=== PATIENT | male | born 1945 | race African-American/Black ===

== ENCOUNTER 2018-08-02 22:17 | Inpatient (IN) ==
[2018-08-02 22:59] LABS: BASO# 0.03 X1000 (0.0-0.2); BASO% 0.4 % (0.0-0.8); EOS# 0.26 X1000 (0.0-0.7); EOS% 3.9 % (0.0-10.0); HEMATOCRIT 43.6 % (42.0-52.0); HEMOGLOBIN 14.4 g/dL (14.0-18.0); IMM GRAN# 0.02 X1000 (0.0-0.04); IMM GRAN% 0.3 % (0.0-0.5); LYMPH# 1.61 X1000 (1.2-3.4); LYMPH% 23.9 % (20.5-51.1); MCH 27.9 PG (27-31); MCV 84.5 FL (81-99); MONO# 0.74 X1000 (0.11-0.59); MPV 10.9 FL (7.4-10.4); NEUT# 4.08 X1000 (1.4-6.5); NEUT% 60.5 % (42.2-75.2); PLT 175 X1000 (130-400); RBC 5.16 XMIL (4.7-6.1); RDW 13.8 % (11.5-14.5); WBC 6.74 X1000 (4.8-10.8)
[2018-08-02 23:03] LABS: BE -0.6 mmoll (-3.0-3.0); BLOOD TYPE ARTERIAL; HCO3-(ACT) 24.4 mmoll (20.0-26.0); METHB 1.2 % (0.0-1.5); O2(CT) 18.8 mL/dL (15.0-23.0); O2HB 93.9 % (95.0-99.0); PCO2(98.6) 43 mmHg (35-45); PO2(98.6) 72 mmHg (60-100); SAMPLE BLOOD; SAO2 97.6 % (95.0-100.0); THB 14.2 g/dL (11.5-17.4); pH(98.6) 7.37 (7.35-7.45)
[2018-08-02 23:04] LABS: ALLEN TEST NO; MODALITY ROOM AIR
[2018-08-02 23:14] LABS: INR 1.03
[2018-08-02 23:15] LABS: PTT 25.6 Seconds (22.3-41.8)
[2018-08-02 23:19] LABS: ALBUMIN 3.9 g/dL (3.5-5.0); CALCIUM 8.3 mg/dL (8.8-10.2); CREATININE 1.4 mg/dL (0.7-1.2); TOTAL BILIRUBIN 0.2 mg/dL (0.20-1.00); TOTAL PROTEIN 7.5 g/dL (6.3-8.3)
[2018-08-02 23:24] LABS: BILIRUBIN URINE NEGATIVE (NEGATIVE); BLOOD URINE 1+ (NEGATIVE); CLARITY CLEAR (CLEAR); COLOR YELLOW; GLUCOSE URINE NEGATIVE (NEGATIVE); KETONE URINE NEGATIVE (NEGATIVE); LEUKOCYTES URINE NEGATIVE (NEGATIVE); NITRITE URINE NEGATIVE (NEGATIVE); PROTEIN URINE 2+(100 mg/dL) mg/dL (NEGATIVE); UROBILINOGEN URINE NORMAL
[2018-08-02] MEDS ORDERED: ATIVAN IV ONE (23:29)
[2018-08-02 23:31] LABS: URINE BACTERIA 3+ /HFP; URINE EPITHELIAL CELLS <10 /HPF (<10); URINE RBC <10 /HPF (<10); URINE SOURCE CATH; URINE WBC <10 /HPF (<10)
[2018-08-02 23:40] LABS: CK INDEX 0.5 (0.0-2.5); CK-MB 8.15 ng/mL (0.0-5.0)
[2018-08-02] MEDS ORDERED: ZOSYN 4.5 GM in NS 100 ML IV ONE (23:51)
[2018-08-02] MEDS ORDERED: ZOSYN ONE (23:52)
[2018-08-02] MEDS ORDERED: NS 100 ML ONE (23:53)
--- NOTE | 2018-08-03 00:29 | EKG Report ---
Test Performed on : 08/02/2018 10:46:47 PM Test Reason : AMS Blood Pressure : / mmHG Vent. Rate : 082 BPM Atrial Rate : 082 BPM P-R Int : 150 ms QRS Dur : 096 ms QT Int : 364 ms P-R-T Axes : 058 044 132 degrees QTc Int : 425 ms Normal sinus rhythm. Septal infarct , age undetermined T wave abnormality, consider lateral ischemia Abnormal ECG When compared with ECG of 20-MAR-2018 16:34, No significant change was found Unconfirmed Result
--- NOTE | 2018-08-03 02:33 | PROVIDER DOCUMENTATION ---
This chart was entered by Phoebe Carlin Scribe, acting as scribe for Radha Bedolla MD. HPI-General Adult - General Chief Complaint: Altered Mental Status Stated Complaint: AMS Time Seen by Provider: 08/02/18 22:43 Source: patient, family, EMS Allergies/Adverse Reactions: Patient Allergies Allergy/AdvReac Type Severity Reaction Status Date / Time No Known Allergies Allergy Verified 05/11/17 15:46 Home Medications: Home Medication List Medication Instructions Recorded Confirmed Last Taken Type Potassium Chloride [Klor-Con M20] 20 meq PO BID 09/03/12 05/11/17 03/07/17 07:00 History Pravastatin Sodium 20 mg PO HS 09/03/12 05/11/17 03/07/17 18:00 History Tamsulosin [Flomax] 0.4 mg PO DAILY 09/03/12 05/11/17 03/07/17 07:00 History Aspirin 325 mg PO DAILY 05/14/17 05/14/17 Unknown History Niacin [Niaspan] 1,000 mg PO QHS 05/14/17 05/14/17 Unknown History Albuterol 2.5MG/Ipratrop 0.5MG 3 ml INH Q2H PRN PRN neb 05/18/17 Unknown Rx [Duoneb (A & A)] Albuterol 2.5MG/Ipratrop 0.5MG 3 ml INH RTQ4H neb 05/18/17 Unknown Rx [Duoneb (A & A)] Amlodipine [Norvasc] 5 mg PO BID tablet 05/18/17 Unknown Rx Cefepime HCl/Dextrose, Iso-Osm 2 gm IV Q12H #1 froz.piggy 05/18/17 Unknown Rx [Cefepime 2 gm Injection] Furosemide [Lasix] 40 mg IV BID vial 05/18/17 Unknown Rx Insulin Glargine [Lantus] 20 unit SUBQ BID insuln.pen 05/18/17 Unknown Rx LISINOpril [Prinivil] 10 mg PO BID tablet 05/18/17 Unknown Rx Promethazine [Phenergan] 12.5 mg IV Q6H PRN PRN ampul 05/18/17 Unknown Rx Vancomycin/0.9% Sod Chloride 2 gm IV DAILY #1 ml 05/18/17 Unknown Rx [Vancomycin-Ns 2 G/500 ml] Mag Hydrox/Al Hydrox/Simeth 710 ml PO PRN PRN #1 oral.susp 03/20/18 Unknown Rx [Mylanta Double-Strength Liq] - History of Present Illness -Gen Adult Nature of Presenting Problems: 73 y/o male presents to ED with AMS onset just prior to arrival. Family of pt reports FSBS of 70 before EMS arrival and that they found him in the floor altered. EMS states they could not get a blood pressure en route to ED. Pt denies pain. Pt is oriented x1. Location of Pain/Injury: reports: none Pain Radiation: reports: no radiation Quality of Pain: reports: none Severity: reports: moderate Onset/Duration: reports: just prior to arrival Timing: reports: still present Context/Activities at Onset: reports: other (found altered in floor) Modifying Factors: improves with: nothing Associated Symptoms: reports: other (AMS) Similar Symptoms Previously?: No Recently seen or treated by another doctor?: No Review of Systems - Adult - REVIEW OF SYSTEMS - ADULT Constitutional: reports: other (AMS). denies: chills, fever Eyes: reports: no symptoms reported Ears, Nose, Mouth & Throat: reports: no symptoms reported Cardiovascular: denies: chest pain, palpitations Respiratory: denies: cough, shortness of breath Gastrointestinal: denies: abdominal pain, diarrhea, nausea, vomiting Genitourinary: reports: no symptoms reported Musculoskeletal: denies: back pain, joint pain Integumentary: reports: no symptoms reported Neurological: reports: other (AMS). denies: dizziness/vertigo, seizure Psychiatric: reports: no symptoms reported Endocrine: reports: no symptoms reported Hematologic/Lymphatic: reports: no symptoms reported Allergic/Immunologic: reports: no symptoms reported All Other Systems: Reviewed and Negative Past History - Adult - PAST MEDICAL HISTORY-ADULT Review of Records: reports: Old Records Reviewed, Nursing Assessment Review, Medications Reviewed Major Childhood Illnesses: reports: denies history Cardiovascular: reports: cardiac disease, CAD, HTN, hyperlipidemia, other (stent) Respiratory: reports: asthma Gastrointestinal: reports: cholelithiasis Obstetrical/Gynecological: reports: denies history Genitourinary: reports: cancer (hx of bladder), kidney disease, other (enlarged prostate) Musculoskeletal: reports: denies history Neurological: reports: denies history Psychiatric: reports: denies history Endocrine/Immune: reports: Diabetes Other Conditions: reports: denies history - PRIOR SURGERIES/PROCEDURES Surgical/Procedure History: reports: cholecystectomy, cardiac stent, other (bladder; heart) - IMMUNIZATION STATUS Childhood Immunizations: See Nurse Assessment Flu Vaccine: See Nurse Assessment - FAMILY HISTORY Family History: reviewed, not pertinent - SOCIAL HISTORY Smoking: quit greater than 1 year Substance Use: none/never Alcohol Use Frequency: never Living Situation: family Physical Exam-General - PHYSICAL EXAM-ADULT Initial Vital Signs Reviewed: Yes - CONSTITUTIONAL General Appearance: other (altered, but able to follow commands; oriented x1) - EYES Eyes: PERRL/EOMI, pink conjunctivae, other (R 2 mm pupil; L cataract) - HEAD, EARS, NOSE, MOUTH & THROAT HENMT: normocephalic/atraumatic, moist mucous membranes - NECK Neck: non-tender, full range of motion - RESPIRATORY Respiratory: chest non-tender, lungs clear, normal breath sounds - CARDIOVASCULAR Cardiovascular: normal peripheral pulses, regular rate, rhythm - GASTROINTESTINAL (ABDOMEN) Abdominal Exam: normal bowel sounds, non tender, soft - MUSCULOSKELETAL Back Exam: normal inspection, no CVA tenderness Extremity: normal range of motion, non-tender, pedal edema (bilateral) - SKIN Integumentary: normal color, warm/dry - NEUROLOGIC Neurologic: grossly normal, facial droop (L sided), other (altered, but able to follow commands; oriented x1) - PSYCHIATRIC Psych/Mental Status: other (altered, but able to follow commands; oriented x1) Progress - PLAN OF CARE/RESULTS Progress/Plan/Lab Results: Vital Signs - 8 hr 08/02/18 22:19 08/02/18 22:36 08/02/18 22:37 Temperature 94.9 F L 94.9 F L Pulse Rate 77 77 Respiratory Rate 20 Blood Pressure 156/80 157/77 O2 Sat by Pulse Oximetry 97 97 08/02/18 23:38 Temperature 95.9 F L Pulse Rate 81 Respiratory Rate 19 Blood Pressure 140/53 O2 Sat by Pulse Oximetry 98 Laboratory Results - last 24 hr 08/02/18 08/02/18 08/02/18 22:26 22:26 22:26 WBC 6.74 RBC 5.16 Hgb 14.4 Hct 43.6 MCV 84.5 MCH 27.9 MCHC 33.0 RDW Std Deviation 13.8 Plt Count 175 MPV 10.9 H Immature Gran % (Auto) 0.3 Neut % (Auto) 60.5 Lymph % (Auto) 23.9 Toole % (Auto) 11.0 H Eos % (Auto) 3.9 Baso % (Auto) 0.4 Immature Gran # (Auto) 0.02 Neut # (Auto) 4.08 Lymph # (Auto) 1.61 Toole # (Auto) 0.74 H Eos # (Auto) 0.26 Baso # (Auto) 0.03 PT INR PTT (Actin FS) Specimen Type Sample Site pH pCO2 pO2 HCO3 Base Excess Oxyhemoglobin ABG O2 Sat (Calculated) ABG O2 Saturation ABG Carboxyhemoglobin ABG Methemoglobin Ulices Test A-a O2 Difference Total Hemoglobin Lactate Blood Gas Modality FiO2 % Sodium 142 Potassium 4.0 Chloride 106 Carbon Dioxide 23 L Anion Gap 14 BUN 11 Creatinine 1.4 H Estimated GFR/1.73 m2 50 BUN/Creatinine Ratio 8 Glucose 48 L Calculated Osmolality 280 Calcium 8.3 L Total Bilirubin 0.20 AST 29 ALT 11 Alkaline Phosphatase 88 Creatine Kinase 1668 H Creatine Kinase Index 0.5 CK-MB (CK-2) 8.15 H Troponin T Total Protein 7.5 Albumin 3.9 Globulin 4.0 Albumin/Globulin Ratio 1.0 Plasma Lactate Urine Source Urine Color Urine Clarity Urine Turbidity Urine pH Ur Specific Ayr Urine Protein Ur Glucose (Stick) Urine Ketones Ur Ketones (Stick) Urine Blood Urine Nitrite Urine Bilirubin Urine Urobilinogen Urobilinogen Dipstick Urine Leukocytes Urine WBC (Auto) Urine RBC (Auto) U Epithel Cells (Auto) Urine Bacteria (Auto) Urine Microscopic RBC Urine WBC Urine Microscopic WBC Ur Epithelial Cells Urine Crystals Small Round Cells Urine Bacteria Urine Casts Urine Trichomonas Urine Yeast Urine Glucose Acetone Level NEGATIVE 08/02/18 08/02/18 08/02/18 22:26 22:26 22:32 WBC RBC Hgb Hct MCV MCH MCHC RDW Std Deviation Plt Count MPV Immature Gran % (Auto) Neut % (Auto) Lymph % (Auto) Toole % (Auto) Eos % (Auto) Baso % (Auto) Immature Gran # (Auto) Neut # (Auto) Lymph # (Auto) Toole # (Auto) Eos # (Auto) Baso # (Auto) PT 14.0 INR 1.03 PTT (Actin FS) 25.6 Specimen Type Sample Site pH pCO2 pO2 HCO3 Base Excess Oxyhemoglobin ABG O2 Sat (Calculated) ABG O2 Saturation ABG Carboxyhemoglobin ABG Methemoglobin Ulices Test A-a O2 Difference Total Hemoglobin Lactate Blood Gas Modality FiO2 % Sodium Potassium Chloride Carbon Dioxide Anion Gap BUN Creatinine Estimated GFR/1.73 m2 BUN/Creatinine Ratio Glucose Calculated Osmolality Calcium Total Bilirubin AST ALT Alkaline Phosphatase Creatine Kinase Creatine Kinase Index CK-MB (CK-2) Troponin T 0.011 Total Protein Albumin Globulin Albumin/Globulin Ratio Plasma Lactate Urine Source CATH Urine Color YELLOW Urine Clarity CLEAR Urine Turbidity Cancelled Urine pH 5.0 Ur Specific Ayr 1.020 Urine Protein 2+(100 mg/dL) A Ur Glucose (Stick) Cancelled Urine Ketones NEGATIVE Ur Ketones (Stick) Cancelled Urine Blood 1+ A Urine Nitrite NEGATIVE Urine Bilirubin NEGATIVE Urine Urobilinogen NORMAL Urobilinogen Dipstick Cancelled Urine Leukocytes Cancelled Urine WBC (Auto) Cancelled Urine RBC (Auto) Cancelled U Epithel Cells (Auto) Cancelled Urine Bacteria (Auto) Cancelled Urine Microscopic RBC <10 Urine WBC NEGATIVE Urine Microscopic WBC <10 Ur Epithelial Cells <10 Urine Crystals Cancelled Small Round Cells Cancelled Urine Bacteria 3+ Urine Casts Cancelled Urine Trichomonas Cancelled Urine Yeast Cancelled Urine Glucose NEGATIVE Acetone Level 08/02/18 08/02/18 22:48 23:06 WBC RBC Hgb Hct MCV MCH MCHC RDW Std Deviation Plt Count MPV Immature Gran % (Auto) Neut % (Auto) Lymph % (Auto) Toole % (Auto) Eos % (Auto) Baso % (Auto) Immature Gran # (Auto) Neut # (Auto) Lymph # (Auto) Toole # (Auto) Eos # (Auto) Baso # (Auto) PT INR PTT (Actin FS) Specimen Type ARTERIAL Sample Site R BRACHIAL pH 7.37 pCO2 43 pO2 72 HCO3 24.4 Base Excess -0.6 Oxyhemoglobin 93.9 L ABG O2 Sat (Calculated) 18.8 ABG O2 Saturation 97.6 ABG Carboxyhemoglobin 2.60 H ABG Methemoglobin 1.2 Ulices Test NO A-a O2 Difference 24.0 Total Hemoglobin 14.2 Lactate 1.20 Blood Gas Modality ROOM AIR FiO2 % 21.0 Sodium Potassium Chloride Carbon Dioxide Anion Gap BUN Creatinine Estimated GFR/1.73 m2 BUN/Creatinine Ratio Glucose Calculated Osmolality Calcium Total Bilirubin AST ALT Alkaline Phosphatase Creatine Kinase Creatine Kinase Index CK-MB (CK-2) Troponin T Total Protein Albumin Globulin Albumin/Globulin Ratio Plasma Lactate 1.5 Urine Source Urine Color Urine Clarity Urine Turbidity Urine pH Ur Specific [place]yr Urine Protein Ur Glucose (Stick) Urine Ketones Ur Ketones (Stick) Urine Blood Urine Nitrite Urine Bilirubin Urine Urobilinogen Urobilinogen Dipstick Urine Leukocytes Urine WBC (Auto) Urine RBC (Auto) U Epithel Cells (Auto) Urine Bacteria (Auto) Urine Microscopic RBC Urine WBC Urine Microscopic WBC Ur Epithelial Cells Urine Crystals Small Round Cells Urine Bacteria Urine Casts Urine Trichomonas Urine Yeast Urine Glucose Acetone Level Orders Category Date Time Status Cardiac Monitoring DIRECTED Care 08/02/18 22:43 Active Melendez Cath Insertion ORDERED Care 08/02/18 22:45 Active IV Insertion ORDERED Care 08/02/18 22:43 Completed Notify MD of + Sepsis Screen NOW Care 08/02/18 22:43 Active CHEST-1 VIEW [RAD] Stat Exams 08/02/18 22:[address] HEAD W/O CONTRAST [CT] Stat Exams 08/02/18 22:45 Ordered ABG [RESP] Routine Lab 08/02/18 22:48 Completed BLOOD CULTURE [BLDCUL] Stat Lab 08/02/18 23:08 Ordered BNP [PRO B-NATRIURETIC PEPTIDE] Stat Lab 08/02/18 23:55 Ordered CBC WITH DIFF [HEME] Stat Lab 08/02/18 22:26 Completed CK PROFILE [SP CHEM] Stat Lab 08/02/18 22:26 Completed COMPREHENSIVE METABOLIC PANEL [CHEM] Stat Lab 08/02/18 22:26 Completed Ketone [ACETONE SERUM] [CHEM] Stat Lab 08/02/18 22:26 Completed LACTATE, PLASMA [CHEM] Q3H Lab 08/02/18 23:06 Completed PROTIME WITH INR [COAG] Stat Lab 08/02/18 22:26 Completed PTT [COAG] Stat Lab 08/02/18 22:26 Completed TROPONIN T Stat Lab 08/02/18 22:26 Completed UA NIMS W/REFLEX CULT PL [URINALYSIS] Stat Lab 08/02/18 22:32 Completed URINE CULTURE [RM] Routine Lab 08/02/18 23:31 Ordered 0.9% Sodium Chloride Inj [Ns] 100 ml Med 08/02/18 23:53 Discontinued .ROUTE As directed Lorazepam [Ativan] Med 08/02/18 23:29 Discontinued 1 mg IV NOW ONE Piperacillin/Tazobactam [Zosyn] Med 08/02/18 23:52 Discontinued 4.5 gm .ROUTE .STK-MED ONE Piperacillin/Tazobactam [Zosyn] 4.5 gm Med 08/02/18 23:51 Active 0.9% Sodium Chloride Inj [Ns] 100 ml IV NOW Oxygen Device Stat Oth 08/02/18 22:43 Active labs and imaging reviewed. pt more alert and awake and coherent. denies any pain or SOB. pt has elevated CPK, ?seizure. d/w Dr Rodriguez, will admit for observation and further evaluation. Result Diagrams: 08/02/18 22:26 08/02/18 22:26 - EKG 1 Time of EKG reading by physician:: 22:46 EKG Read and Signed by:: Radha Bedolla EKG Interpretation (*Must complete 3 of following elements*): Abnormal Rate: 82 Rhythm: NSR [place]: normal QRS: other (septal infarct) MO Interval: normal ST Wave: non-specific ST changes (consider lateral ischemia) - XRAY 1 XRAY Study: Chest Impression: See EMR Report - CT/MRI 1 CT Study: Head Impression: See EMR Report - CONSULTS/PCP/HOSPITALIST Notification #1 *Consult/PCP/Hospitalist*: DR RODRIGUEZ Time Discussed: 03:55 Consult Disposition: Admit Departure - Departure Date of Disposition Decision: 08/03/18 Time of Disposition Decision: 04:51 DIAGNOSIS: Altered mental status, Seizure Disposition: ADMITTED INPATIENT 09 Certified Medical Emergency: Emergent Condition: Stable - Critical Care Note This patient required my direct & personal management of CC.: No Attestation - Physician/ ALEXANDREA Attestation Patient care was provided by Advanced Practice Provider:: No The physician spent face to face time with patient:: Yes Advanced Practice Provider documentation review:: Supervising physician onsite and consulted in the evaluation and care of this patient. The physician did have a face to face encounter with the patient. This chart was documented by the indicated scribe, (Phoebe Carlin Scribe) and accurately reflects the services I performed and decisions made by me, Radha Bedolla MD, as attested by the provider's signature.
[2018-08-03] MEDS ORDERED: NS 1,000 ML IV ONE (03:27)
[2018-08-03] MEDS ORDERED: NS 1,000 ML IV SCH (03:30)
--- NOTE | 2018-08-03 06:11 | Diag Imaging Result Doc PS360 ---
EXAM: CT HEAD W/O CONTRAST HISTORY: AMS TECHNIQUE: CT head without contrast COMPARISON: 05/11/2017 FINDINGS: No parenchymal hemorrhage. No epidural or subdural hematoma. No subarachnoid hemorrhage. There is mild atrophy with chronic microvascular ischemic changes. No mass identified on this noncontrasted exam. No hydrocephalus. No sinus opacification. False left eye. IMPRESSION: 1.No hemorrhage 2.Atrophy of chronic microvascular ischemic changes 3.A preliminary report was given at 12:47 AM This exam was performed using automated exposure control, adjustment of mA or kV according to patient size, and/or use of iterative reconstruction technique. Electronically signed by Herman Molina 08/03/2018 6:09 AM
--- NOTE | 2018-08-03 06:19 | Diag Imaging Result Doc PS360 ---
EXAM: CHEST-1 VIEW HISTORY: AMS TECHNIQUE: Chest single view COMPARISON: 03/20/2018 FINDINGS: The lungs are well expanded. The heart is not enlarged. The vessels are not distended. There are no infiltrates. No effusion identified. There is upper mediastinal prominence and the trachea is deviated to the right. The trachea may be narrowed. CT from 03/13/2018 demonstrated thyromegaly and tracheal deviation. IMPRESSION: Enlarged thyroid which may have even increased in size since the prior CT with deviation of the trachea and possibly tracheal narrowing. Electronically signed by Herman Molina 08/03/2018 6:17 AM
[2018-08-03] MEDS: ASPIRIN PO SCH (09:36)
[2018-08-03] MEDS: PRINIVIL PO SCH ×2 (09:36→20:15)
[2018-08-03] MEDS: LASIX IV SCH ×2 (09:36→20:16)
[2018-08-03] MEDS: KLOR-CON PO SCH ×2 (09:36→20:16)
[2018-08-03] MEDS: NORVASC PO SCH ×2 (09:36→20:15)
[2018-08-03] MEDS: FLOMAX PO SCH (09:36)
[2018-08-03] MEDS: LANTUS INSULIN SUBQ SCH (09:45)
[2018-08-03] MEDS: DUONEB (A & A) INH SCH ×3 (11:20→22:00)
[2018-08-03] MEDS ORDERED: ATIVAN IV ONE (19:28)
[2018-08-03] MEDS: DESYREL PO SCH (21:16)
[2018-08-04] MEDS: DUONEB (A & A) INH SCH ×4 (03:07→21:23)
[2018-08-04] MEDS: LANTUS INSULIN SUBQ SCH (09:00)
[2018-08-04] MEDS: PRINIVIL PO SCH ×2 (09:00→20:06)
[2018-08-04] MEDS: KLOR-CON PO SCH ×2 (09:01→20:05)
[2018-08-04] MEDS: FLOMAX PO SCH (09:01)
[2018-08-04] MEDS: NORVASC PO SCH ×2 (09:01→20:05)
[2018-08-04] MEDS: LASIX IV SCH ×2 (09:01→20:06)
[2018-08-04] MEDS: ASPIRIN PO SCH (09:01)
[2018-08-04] MEDS: DESYREL PO SCH (20:06)
[2018-08-04] MEDS: TESSALON PO PRN (21:27)
[2018-08-05] MEDS: DUONEB (A & A) INH SCH ×3 (03:41→15:17)
[2018-08-05] MEDS: TESSALON PO PRN (06:30)
[2018-08-05 06:48] LABS: BASO# 0.03 X1000 (0.0-0.2); BASO% 0.5 % (0.0-0.8); EOS% 5.1 % (0.0-10.0); HEMATOCRIT 38.8 % (42.0-52.0); HEMOGLOBIN 12.8 g/dL (14.0-18.0); IMM GRAN# 0.01 X1000 (0.0-0.04); IMM GRAN% 0.2 % (0.0-0.5); LYMPH# 1.22 X1000 (1.2-3.4); LYMPH% 20.7 % (20.5-51.1); MCH 28.2 PG (27-31); MCV 85.5 FL (81-99); MONO# 0.72 X1000 (0.11-0.59); MONO% 12.2 % (1.7-9.3); NEUT# 3.61 X1000 (1.4-6.5); NEUT% 61.3 % (42.2-75.2); PLT 145 X1000 (130-400); RBC 4.54 XMIL (4.7-6.1); RDW 13.7 % (11.5-14.5); WBC 5.89 X1000 (4.8-10.8)
[2018-08-05 07:02] LABS: HEMOGLOBIN A1C 7.5 % (4.8-6.0)
[2018-08-05 07:24] LABS: ALBUMIN 3.5 g/dL (3.5-5.0); CALCIUM 8.1 mg/dL (8.8-10.2); CREATININE 1.6 mg/dL (0.7-1.2); POTASSIUM 4.5 mmol/L (3.5-5.1); TOTAL BILIRUBIN 0.2 mg/dL (0.20-1.00)
--- NOTE | 2018-08-05 07:44 | Diag Imaging Result Doc PS360 ---
EXAM: SINUSES GOLDEN VIEW ONLY INDICATION: cough TECHNIQUE: One view COMPARISON: None. FINDINGS: There is a sharply demarcated rounded structure in the right maxillary sinus likely representing a moderate-sized mucus retention cyst. No paranasal sinus air-fluid levels are appreciated. The mastoid air cells are clear. The surrounding bony structures are grossly intact. IMPRESSION: Likely mucus retention cyst in the right maxillary sinus suggesting chronic sinus mucosal disease. Electronically signed by Lorenzo Elder 08/05/2018 7:42 AM
--- NOTE | 2018-08-05 07:48 | Diag Imaging Result Doc PS360 ---
EXAM: CHEST-2 VIEWS INDICATION: cough TECHNIQUE: 2 views COMPARISON: 08/03/2018 FINDINGS: The lungs are grossly clear. There is no discrete pleural fluid collection or pneumothorax. There is tracheal deviation that is stable and related to known thyromegaly as was seen on prior CT. The cardiomediastinal silhouette and central vasculature are grossly unremarkable, otherwise. IMPRESSION: No evidence of acute pathology by plain radiograph. Electronically signed by Lorenzo Eldre 08/05/2018 7:45 AM
[2018-08-05] MEDS: LANTUS INSULIN SUBQ SCH (08:16)
[2018-08-05] MEDS: PRINIVIL PO SCH (08:17)
[2018-08-05] MEDS: ASPIRIN PO SCH (08:17)
[2018-08-05] MEDS: NORVASC PO SCH (08:17)
[2018-08-05] MEDS: LASIX IV SCH (08:17)
[2018-08-05] MEDS: FLOMAX PO SCH (08:17)
[2018-08-05] MEDS: KLOR-CON PO SCH (08:17)
--- NOTE | 2018-08-05 15:09 | Diag Imaging Result Doc PS360 ---
EXAM: CT NECK W/CONTRAST INDICATION: mass deviating trachea TECHNIQUE: This exam was performed using automated exposure control, adjustment of mA or kV according to patient size, and/or use of iterative reconstruction technique. COMPARISON: 05/14/2017 FINDINGS: The salivary glands are unremarkable. The thyroid is enlarged and is extremely heterogeneous. This is stable as compared to the previous study and is most compatible with multinodular goiter. It is causing rightward tracheal deviation and narrowing. The aerodigestive tract is grossly unremarkable, otherwise. This is also stable. There is no evidence of significant cervical lymphadenopathy. There is a large subcutaneous lipoma with internal septations and no definite enhancement posteriorly at the base of the neck on the left. It is essentially stable. IMPRESSION: 1.Very enlarged and extremely heterogeneous thyroid that is essentially stable causing stable tracheal narrowing and rightward tracheal deviation. It is nonspecific but most compatible with multinodular goiter. 2.Large subcutaneous lipoma posteriorly on the left at the base the neck that is essentially stable. Electronically signed by Lorenzo Elder 08/05/2018 3:07 PM
[2018-08-05 16:15] VITALS: BP 142/64
[2018-08-05] MEDS ORDERED: NS 500 ML IV ONE (16:23)
[2018-08-05] MEDS ORDERED: NS 250 ML IV ONE (16:44)
--- NOTE | 2018-09-21 10:21 | HISTORY AND PHYSICAL ---
73-year-old black clinic patient of mine who presented to the emergency room with an altered mental status, brought in by his family. His altered mental status began just prior to his arrival. Family reported after gathering up his blood sugar equipment, his blood sugar was 70 before EMS arrival. They found him on the floor altered, confused. EMS said they could not get a blood pressure. The patient denied pain. He is only oriented x1. He does have a history of diabetes. He is taking Lantus 20 units b.i.d. He also has a background history of hypertension, dyslipidemia and BPH. He has had a previous bladder cancer. After being in the ER for a period of time, he rallied up and got back to his normal self. There is a question of some of these have been going on at home. They thought maybe it was a seizure. 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 In the ER, his CT was negative. His vital signs in the ER revealed a temperature of 94.9 degrees x2, pulse 77, respiratory rate 20, blood pressure 156/80, O2 sat 97% and 98%. He was admitted. ALLERGIES: No known allergies. MEDICATIONS AT HOME: 1. Pravastatin 20. 2. Tamsulosin 0.4. 3. Aspirin 325. 4. Potassium 20 b.i.d. 5. Albuterol p.r.n. 6. Amlodipine 5 b.i.d. 7. Insulin glargine 20 b.i.d. by insulin pen. 8. Lisinopril 10 b.i.d. PAST MEDICAL HISTORY: I have been his physician for a long time. Cardiovascularly, he has coronary artery disease, hypertension, dyslipidemia. He has had a stent placed. He has a history of asthma. He has had cholelithiasis. He has had bladder cancer. He has had enlarged prostate. He has had underlying diabetes. PREVIOUS SURGERIES: Include cholecystectomy, cardiac stent and bladder surgery in reference to his bladder cancer. REVIEW OF SYSTEMS: After he awakened, he denied any chills, fever, significant weight gain or weight loss. No change in his visual acuity denson, vision or appearance to his eyes. Nares patent. Oropharynx negative. Cardiovascular: He denies chest pain, palpitations. No PND or orthopnea. Occasionally has some edema in his legs. Respiratory: He denies any recent cough, shortness of breath, wheezing episodes, phlegm production, upper respiratory, lower respiratory symptoms. Gastrointestinal: He denies any nausea, vomiting, diarrhea, constipation, bloody stools, black stools. Genitourinary: No dysuria, hematuria, or polyuria. No significant change in his stream. Musculoskeletal: He denies any back pain or any significant joint pain. 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 Neurological: He has this altered mental status. He has had it on a couple of occasions in the past. We have attributed it to hypoglycemia. He has had no prolonged neurological deficits. Psychiatric: No issues. Endocrine: He is a diabetic. No history of any thyroid disease. Hematological: He has no clotting or bleeding disorder. No history of anemia. Allergies: He has a history of asthma but no significant hayfever. PHYSICAL EXAMINATION: VITAL SIGNS: At the time of admission, temp was roughly 95 degrees, pulse 77, respiratory rate 20, BP 156/80, O2 sat was 97. HEENT: Head as normocephalic. Eyes were PERRL. EOMs intact. SC clear. Fundi benign Nares patent. Oropharynx negative. NECK: Supple, bounding carotids without thyromegaly, without lymphadenopathy. CHEST: Bilateral breath sounds are clear. CARDIOVASCULAR: Regular rhythm and rate. No murmurs, gallops, clicks or rubs. ABDOMEN: Obese. No hepatosplenomegaly. No CVA tenderness. EXTREMITIES: Negative with no cyanosis, clubbing or edema. NEUROLOGICAL: Symmetric. After he presented, he had been given sugar and his mental status returned to its baseline. I suspect that this was a hypoglycemic episode related to his insulin. He will be admitted for observation. He has already had a CAT scan in the ER that was negative. cc: Carrington Amos MD
--- NOTE | 2018-09-21 13:45 | DISCHARGE SUMMARY ---
ADMISSION DATE: 08/04/2018 DISCHARGE DATE: 08/05/2018 A patient of mine from the office, a 73-year-old black male with a history of diabetes, hypertension, ischemic heart disease, bladder cancer, who presented to the ER with an altered mental status, brought in by his family, with a blood sugar of 54. He is on 20 units of Lantus b.i.d. We monitored throughout the hospital stay. His blood sugars have been fine. He is A1c is 7.5 indicating pretty decent control. TSH was normal. We backed off on his insulin and we will see what happens at home but I suspect that this was all secondary to hypoglycemia and not a true seizure disorder. cc: Carrington Amos MD
--- NOTE | 2018-09-21 14:33 | PROGRESS NOTE ---
DATE: 08/03/2018 OBJECTIVE: Patient's temperature is 97.5, pulse of 64, respiratory rate 16, BP 136/83, 02 saturation was 100%. LABORATORY DATA FROM ADMISSION: Showed a normal CBC. Hematocrit was 43.6. Platelet count was 175. White count was 6700. Chemistries showed persistent elevated blood sugar in the 200 range. His admitting blood sugar was 48 on our data. Sodium is 142. Potassium 4. Chloride 106. CO2 was 23. BUN 11. Creatinine 1.4. GFR calculated at 50. His CPK was 1668 and MB band was 8.15 but his index was 0.5. This is a chronic condition with him. His troponin was 0.11. Liver functions were normal. Patient is his normal self. No issues of any alternative mental status. He is eating well. cc: Carrington Amos MD
--- NOTE | 2018-09-21 14:37 | PROGRESS NOTE ---
DATE: 08/04/2018 SUBJECTIVE: Patient presented with a blood sugar of 54 and altered mental status, who has since been stable. OBJECTIVE: His temperature was 98, pulse was 85, respiratory rate 18, blood pressure 132/59, O2 saturation was 98%. LABORATORY DATA: Sugars have been fine, and up to 300. He is having no issues. PLAN: I do not think he has any kind of seizures. We are going to send him home tomorrow. cc: Carrington Amos MD
== END 2018-08-05 18:14 | disposition home or self-care (01) | DRG 639 ==
LOC: P.ED 22:17 → P.MEDSURG 22:17
PROVIDERS: ADMIT Internal Medicine; ATTEND Internal Medicine
CPT/HCPCS: 51702; 70210; 70450; 70491; 71010; 71020; 71045; 71046; 80053; 81001; 82009; 82550; 82553; 82805; 82948; 83036; 83605; 83880; 84443; 84484; 85025; 85610; 85730; 87040; 87088; 93005; 94640; 94761; 96361; 96365; 96375; 99285; A9270; J1815; J1940; J2060; J2543; J7030; J7040; Q9967; XXXXX